=== PATIENT | female | born 1930 | race Caucasian/White ===

== ENCOUNTER 2016-11-27 09:51 | Outpatient (CLI) | payer OTHER ==
--- NOTE | 2016-11-27 10:21 | DIAGNOSTIC IMAGING REPORT ---
PROCEDURE: DEXA BONE DENSITY STUDY CLINICAL INDICATION: SCREENING FOR OSTEOPOROSIS COMPARISON: None. FINDINGS: LUMBAR SPINE: Bone mineral density 0.760 g/cm2, T score -2.6 osteoporosis LEFT HIP: Bone mineral density 0.932 g/cm2, T score -0.1 normal LEFT FEMORAL NECK: Bone mineral density 0.686 g/cm2, T score -1.5 osteopenia FRACTURE RISK CALCULATION ( when applicable): 10-year fracture risk of a major osteoporotic fracture and of a hip fracture not reported because some T-score at or below -2.5 (T score greater or equal to -1.0 to: NORMAL) (T score from -1.1 to -2.4: OSTEOPENIA) (T score ess than or equal to -2.5: OSTEOPOROSIS) IMPRESSION: 1. Osteoporosis lumbar spine, osteopenia femoral neck.
== END 2016-11-27 23:00 ==
LOC: XR SRH 09:51
DX: M81.8 Other osteoporosis without current pathological fracture (principal)

== ENCOUNTER → 2016-11-30 | Outpatient (CLI) | payer OTHER ==
--- NOTE | 2016-11-30 18:35 | DIAGNOSTIC IMAGING REPORT ---
PROCEDURE: MR CERVICAL SPINE W/O CONT INDICATION: Neck pain with right radiculopathy, initial encounter TECHNIQUE: Noncontrast T1, T2, and STIR sagittal images. T2 and gradient axial images. COMPARISON: Cervical spine x-ray 11/16/2016 FINDINGS: Normal alignment with mild degenerative changes. Mild C3-4, C5-6 and C6 disc space narrowing. No fracture or suspicious osseous lesion. Normal craniocervical junction and cord. Paraspinal soft tissues are unremarkable. C2-3: Moderate central disc herniation. Normal foraminal or spinal stenosis. C3-4: Small disc bulge with mild left foraminal and spinal stenosis. C4-5: Mild left posterior disc bulge/spur complex with facet arthropathy resulting in severe left foraminal stenosis. There is no spinal stenosis. C5-6: Mild right foraminal disc bulge/spur complex with facet arthropathy. There is moderate right and mild left foraminal stenosis. No spinal stenosis. C6-7: Small broad-based disc bulge/spur complex with facet arthropathy. No foraminal or spinal stenosis. C7-T1: Small disc bulge. IMPRESSION: 1. Moderate degenerative changes. 2. Moderate C2-3 central disc herniation but no neural compromise. 3. Small C3-4 disc bulge with mild spinal stenosis 4. Mild C4-5 left posterior disc bulge with severe left foraminal stenosis 5. Mild C5-6 right foraminal disc bulge with moderate right and mild left foraminal stenosis
== END ==
LOC: MRI SRH 14:51
DX: M48.02 Spinal stenosis, cervical region (principal); M50.223 Other cervical disc displacement at C6-C7 level; M50.21 Other cervical disc displacement, high cervical region